=== PATIENT | female | born 1940 | race Caucasian/White ===

== ENCOUNTER → 2016-12-11 10:26 | Outpatient (CLI) | payer MEDICARE, OTHER | END | disposition home or self-care (01) | LOC: D.US 10:26 | DX: E04.1 Nontoxic single thyroid nodule (principal) ==

== ENCOUNTER → 2016-12-25 07:19 | Outpatient (CLI) | payer MEDICARE, OTHER | END | disposition home or self-care (01) | LOC: D.CT 07:19 | DX: R22.1 Localized swelling, mass and lump, neck (principal) ==

== ENCOUNTER → 2017-01-11 07:31 | Outpatient (CLI) | payer MEDICARE, OTHER ==
[~2017-01-11 07:31] MED LIST: ALENDRONATE SOD70 MG PO; BAYER CHEWABLE81 MG PO; CALAN SR240 MG PO; FUROSEMIDE20 MG PO; HYZAAR 100-25 T1 TAB PO; KENALOG 0.1 % O15 GM TOPICAL; MELOXICAM TAB 15M PO; MIRAPEX0.5 MG PO; NIFEDIPINE ER30 MG PO; OXYBUTYNIN CHLOR5 MG PO; PRAVASTATIN SOD10 MG PO
--- NOTE | 2017-01-11 12:17 | NUR ---
0900-PROCEDURE CANCELLED DUE TO ASPRIN TAKEN YESTERDAY. DISCHARGE INSTRUCTIONS GIVEN. PT. LEFT WITH ALL PERSONAL BELONGINGS.
[2017-01-15 08:37] VITALS: BMI 27.9
== END | disposition home or self-care (01) ==
LOC: D.RAD 01-09 08:00 → D.OPS 07:31 → D.RAD 10:00 → D.OPS 10:00
DX: E04.2 Nontoxic multinodular goiter (principal); R22.1 Localized swelling, mass and lump, neck

== ENCOUNTER 2017-01-15 06:24 | Outpatient (CLI) | payer MEDICARE, OTHER ==
[~2017-01-15] VITALS: Ht 167.6 cm; Wt 78.6 kg
[2017-01-15 07:34] LABS: APTT 27.2 SECONDS (22.8-39.4); INR 0.93 (0.85-1.17); PROTIME 12.3 SECONDS (11.6-15.0)
[2017-01-15 07:40] LABS: BASOPHILS 0.3 % (0-2); EOSINOPHILS 2.6 % (0-7); HEMATOCRIT 37.3 % (36.0-48.0); HEMOGLOBIN 12.8 g/dL (12-16); IMMATURE GRANULOCYTES 0.2 % (0-5); LYMPHOCYTES 32.8 % (15-50); MCH 27.5 pg (26.0-34.0); MCHC 34.3 g/dL (31.0-37.0); MCV 80.2 fL (80.0-100.0); MEAN PLATELET VOLUME 9.1 fL (7.4-10.4); MONOCYTES 8.7 % (2-11); NEUTROPHILS 55.4 % (40-80); PLATELET COUNT 217 10x3/uL (130-400); RBC 4.65 10x6/uL (4.00-5.40); RDW 14.4 % (11.5-14.5); WBC 5.8 10x3/uL (4.8-10.8)
[2017-01-15 07:52] LABS: CALC OSMOLALITY 275 mosm/kg (275-300); CARBON DIOXIDE 30.7 mmol/L (21.0-32.0); CHLORIDE - SERUM 99 mmol/L (98-107); CREATININE - SERUM 0.6 mg/dL (0.6-1.3); GLUCOSE 108 mg/dL (74-106); POTASSIUM - SERUM 3.5 mmol/L (3.5-5.1); SODIUM 137 mmol/L (136-145); UREA NITROGEN 14 mg/dL (7-18); eGFR NON AFRICAN AMERICAN > 90 mL/min (90-120)
[2017-01-15] MEDS ORDERED: HYZAAR 100-25 T1 TAB PO (08:23)
[2017-01-15] MEDS ORDERED: CALAN SR240 MG PO (08:23)
[2017-01-15] MEDS ORDERED: MOBIC7.5 MG PO (08:24)
[2017-01-15] MEDS ORDERED: ALENDRONATE SOD70 MG PO (08:26)
[2017-01-15] MEDS ORDERED: MIRAPEX0.5 MG PO (08:26)
[2017-01-15] MEDS ORDERED: PRAVACHOL20 MG PO (08:26)
[2017-01-15] MEDS ORDERED: FUROSEMIDE20 MG PO (08:27)
[2017-01-15] MEDS ORDERED: OXYBUTYNIN CHLOR5 MG PO (08:27)
[2017-01-15] MEDS ORDERED: KENALOG 0.1 % O15 GM TOPICAL (08:27)
[2017-01-15] MEDS ORDERED: BAYER CHEWABLE81 MG PO (08:28)
[2017-01-15] MEDS ORDERED: NIFEDIPINE ER30 MG PO (08:28)
[2017-01-15 08:37] VITALS: Ht 167.6 cm; Wt 78.6 kg
[2017-01-17] MEDS ORDERED: RESTORIL15 MG PO (12:43)
[2017-01-17] MEDS ORDERED: ZANTAC150 MG PO (12:45)
[2017-01-17] MEDS ORDERED: CALCIUM 600 +1 EAC3 PO (12:50)
[2017-01-17] MEDS ORDERED: OCUVITE TABLET1 TA1 PO (12:50)
[2017-01-17] MEDS ORDERED: CENTRUM SILVER1 TA1 PO (12:51)
[2017-01-17] MEDS ORDERED: FERROUS SULFAT325 MG PO (12:51)
[2017-01-17] MEDS ORDERED: POTASSIUM99 M1 PO (12:51)
[2017-01-17] MEDS ORDERED: MAGNESIUM GLUC500 M1 PO (12:52)
== END 2017-01-15 12:15 | disposition home or self-care (01) ==
LOC: D.OPS 06:24 → D.RAD 09:00 → D.OPS 12:15
PROVIDERS: Radiology Diagnostic Radiology
DX: E04.2 Nontoxic multinodular goiter (principal); R22.1 Localized swelling, mass and lump, neck; Z01.812 Encounter for preprocedural laboratory examination

== ENCOUNTER 2017-01-18 05:25 | Day surgery (SDC) | payer MEDICARE, OTHER ==
[2017-01-17 14:18] LABS: BASOPHILS 0.1 % (0-2); EOSINOPHILS 1.8 % (0-7); HEMATOCRIT 37.9 % (36.0-48.0); HEMOGLOBIN 12.9 g/dL (12-16); IMMATURE GRANULOCYTES 0.1 % (0-5); LYMPHOCYTES 28.8 % (15-50); MCH 27.6 pg (26.0-34.0); MEAN PLATELET VOLUME 8.5 fL (7.4-10.4); NEUTROPHILS 61.2 % (40-80); PLATELET COUNT 193 10x3/uL (130-400); RBC 4.68 10x6/uL (4.00-5.40); RDW 14.5 % (11.5-14.5); WBC 7.3 10x3/uL (4.8-10.8)
[2017-01-17 14:33] LABS: APTT 25.4 SECONDS (22.8-39.4); INR 0.95 (0.85-1.17); PROTIME 12.5 SECONDS (11.6-15.0)
[2017-01-17 14:35] LABS: CALC OSMOLALITY 272 mosm/kg (275-300); CALCIUM 8.7 mg/dL (8.5-10.1); CARBON DIOXIDE 31.5 mmol/L (21.0-32.0); CHLORIDE - SERUM 99 mmol/L (98-107); CREATININE - SERUM 0.7 mg/dL (0.6-1.3); GLUCOSE 99 mg/dL (74-106); POTASSIUM - SERUM 3.1 mmol/L (3.5-5.1); SODIUM 136 mmol/L (136-145); UREA NITROGEN 15 mg/dL (7-18); eGFR NON AFRICAN AMERICAN 86 mL/min (90-120)
[2017-01-18] VITALS: BP 136/67
[~2017-01-18] VITALS: Ht 167.6 cm; Wt 78.2 kg
--- NOTE | ~2017-01-18 | OP ---
PATIENT NAME: SAMIRA ROBERTO MEDICAL RECORD: [id number] :38 LOCATION:[id number] ADMISSION DATE:01/18/17 SURGEON: MILIND FLOREZ MD DATE OF OPERATION: 01/18/2017 PREOPERATIVE DIAGNOSES: 1. Left thyroid nodule. 2. Hypertension. 3. Hypercholesterolemia. 4. Arthritis. 5. Osteoporosis. POSTOPERATIVE DIAGNOSES: 1. Left thyroid nodule. 2. Hypertension. 3. Hypercholesterolemia. 4. Arthritis. 5. Osteoporosis. PROCEDURE: Left thyroid lobectomy. SURGEON: Milind Florez MD REPORT OF PROCEDURE: The patient's neck was prepped and draped in sterile fashion. A transverse incision was made on the inferior aspect of the patient's neck. Electrocautery was used to dissect through the subcutaneous tissues and platysma. I then made a subcutaneous pouches overlying the strap musculature and then opened up the median raphe to enter the space around the thyroid gland. There were lot of adhesions of the surrounding muscular tissue to the superior aspect of the thyroid gland. This portion of the thyroid gland was firm and nodular. We were able to dissect up and take down the superior thyroidal vessels using ties and clamped. As we released these, we were able to start working our way down. We took down the middle thyroid vessels using ties and clamps and eventually got down to the inferior aspect of the thyroid gland where the mass was present. The mass was quite large and extending down under the sternocleidomastoid and the clavicle. We were eventually able to dissect this up and took down the inferior thyroidal vessels. We then transected the thyroid gland in its midline over the trachea and began our dissection of the thyroid gland off of the trachea itself. Again, there were some dense adhesions of the musculature to the superior aspect of the thyroid gland. We eventually were able to get the thyroid completely excised from the trachea and sent this off for frozen section. Frozen section showed that there was no sign of any cancer present in the lesion just compatible with a large goiter. At this point, we inspected the area thoroughly and make sure there was no sign of any active bleeding and any vessels that were seen were treated with clips. We irrigated out the wound thoroughly with normal saline. We then placed Gelfoam dipped in thrombin into the wound bed. The strap muscles were reapproximated with running 2-0 Vicryl, Marianna's was closed with interrupted 3-0 Vicryl and the skin was closed with running subcutaneous 5-0 Monocryl. A 10 mL of 0.25% Marcaine with epinephrine were infused into the surrounding tissues and the wound was dressed appropriately. COMPLICATIONS: None. CONDITION: Stable. OPERATIVE REPORT [id number] ROBERTOSAMIRA LIVE ANESTHESIA: General endotracheal and local. BLOOD LOSS: 30 mL. 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
[~2017-01-18 05:25] MED LIST changes: +CALCIUM 600 +1 EAC3 PO; +CENTRUM SILVER1 TA1 PO; +FERROUS SULFAT325 MG PO; +MAGNESIUM GLUC500 M1 PO; -MELOXICAM TAB 15M PO; +MOBIC7.5 MG PO; +OCUVITE TABLET1 TA1 PO; +POTASSIUM99 M1 PO; +PRAVACHOL20 MG PO; -PRAVASTATIN SOD10 MG PO; +RESTORIL15 MG PO; +ZANTAC150 MG PO
[2017-01-18] MEDS ORDERED: MELATONIN 10 M1 EACH PO (06:05)
[2017-01-18 06:11] VITALS: BP 114/70; BMI 27.9
[2017-01-18 10:26] VITALS: BP 154/79
--- NOTE | 2017-01-18 10:30 | NUR ---
RECEIVED TO ROOM 2208 VIA BED FROM PACU. A/O X3. FAMILY AT BEDSIDE. DRESSING TO THROAT DRY AND INTACT.
[2017-01-18 10:52] VITALS: BP 154/79; Ht 167.6 cm; Wt 78.2 kg
--- NOTE | 2017-01-18 11:07 | NUR ---
PT AOX4 RESP EVEN AND NONLABORED PT DENIES NEEDS AT THIS TIME SRX2 BED AT LOWEST SETTING CALL LIGHT WITHIN REACH WILL CONTINUE TO MONITOR
[2017-01-18] MEDS ORDERED: HYDROCODON-ACE1 EAC7 PO (11:39)
[2017-01-18 16:00] VITALS: BP 138/64
--- NOTE | 2017-01-18 18:41 | NUR ---
IV CATHETER DISCONTINUED WITH CATHETER INTACT AT THIS TIME DISCHARGE INSTRUCTIONS GIVEN TO PT AND FAMILY AT THIS TIME ONE PRESCRIPTION HANDED TO PT THIS TIME
== END 2017-01-18 19:19 | disposition home or self-care (01) ==
LOC: D.SDCHOLD 05:25 → D.OPS 05:25 → D.SDCHOLD 07:30 → EDSTATUS 07:30 → D.MS 09:54 → D.SDCHOLD 09:54 → D.OPS 19:19 → D.MS 19:19
PROVIDERS: Anesthesiology; Surgery
PROC: 0GBG0ZZ Excision of Left Thyroid Gland Lobe, Open Approach (ICD-10-PCS; principal; 2017-01-18 07:30)
DX: E04.1 Nontoxic single thyroid nodule (principal); I10 Essential (primary) hypertension; E78.00 Pure hypercholesterolemia, unspecified; M19.90 Unspecified osteoarthritis, unspecified site; Z01.812 Encounter for preprocedural laboratory examination